=== PATIENT | female | born 1965 | race Caucasian/White ===

== ENCOUNTER 2019-03-26 19:12 | Emergency (ER) | payer SELFPAY ==
[~2019-03-26] VITALS: Ht 157.5 cm; Wt 60.3 kg
[2019-03-26 19:49] VITALS: Ht 157.5 cm; Wt 60.3 kg
[2019-03-26 21:24] VITALS: BP 132/78
== END 2019-03-26 21:24 | disposition home or self-care (01) ==
LOC: ED 19:12
DX: B02.9 Zoster without complications (principal); R03.0 Elevated blood-pressure reading, without diagnosis of hypertension
CPT/HCPCS: Q0163